=== PATIENT | female | born 1960 | race Caucasian/White ===

== ENCOUNTER 2021-02-17 13:00 | Emergency (ER) | payer BC ==
[~2021-02-17] VITALS: Ht 177.8 cm; Wt 81.7 kg
[2021-02-17 13:09] VITALS: BP 122/67
[2021-02-17] MEDS ORDERED: LISINOPRIL-HCT1 EACH PO (13:15)
--- NOTE | 2021-02-18 09:28 | EKG ---
[place] [address] ELECTROCARDIOGRAM REPORT Name: SANDRA BURNS Room: [facility]#: [id number] Admission: 02/17/21 Attend Phys: Discharge: 02/17/21 Date of : 64 Date of Service: 02/17/21 1306 Report #: [id number] THIS REPORT FOR: //name// [facility] ED Test Date: 2021-02-17 Test Time: 13:06:14 Pat Name: SANDRA BURNS Department: Room: Gender: [employer]: : 1960 Requested By: Andrew Alan Order Number: [id number] Reading MD: Christiano Garnica Measurements Intervals [place] Rate: 94 P: -15 [place]: 139 QRS: 36 QRSD: 103 T: 14 QT: 338 QTc: 423 Interpretive Statements Sinus rhythm Artifact in lead(s) I,II,III,aVR,aVL,aVF Compared to ECG 12/20/2005 17:00:56 No significant changes Electronically Signed On 02-18-2021 9:27:46 CDT by Christiano Garnica [email or web address] <ELECTRONICALLY SIGNED> By: Ana Garnica MD, [facility] 02/18/21 0927 1306 1306 Ana Garnica MD, [facility] /EPI
== END 2021-02-17 14:25 | disposition left against medical advice (07) ==
LOC: M.ERS 13:00
DX: Z53.21 Procedure and treatment not carried out due to patient leaving prior to being seen by health care provider (principal)